=== PATIENT | female | born 1980 | race Caucasian/White ===

== ENCOUNTER 2018-01-16 14:03 | Inpatient (IN) | payer OTHER ==
[~2018-01-16] VITALS: Ht 162.6 cm; Wt 55.8 kg
[~2018-01-16 14:03] MED LIST: BACTRIM DS TAB1 EACH PO; CLONAZEPAM 1 MG PO; ERYTHROMYCIN E3.5 G1 OPHTHALMIC; NORCO 5-325 TA1 EACH PO
[2018-01-16 14:16] VITALS: BP 155/68
[2018-01-16 14:25] LABS: URINE BILIRUBIN NEGATIVE (Negative); URINE BLOOD 3+ (Negative); URINE CLARITY CLEAR; URINE COLOR DARK YELLOW; URINE GLUCOSE-RANDOM NEGATIVE (Negative); URINE KETONES NEGATIVE (Negative); URINE PROTEIN 1+ (Negative); URINE SPECIFIC GRAVITY 1.025 (1.005-1.030); URINE UROBILINOGEN 0.2 E.U./dl (0.2-1.0)
[2018-01-16 14:29] LABS: URINE LEUKOCYTES-REFLEX 3+ (Negative); URINE NITRITE-REFLEX POSITIVE (Negative)
[2018-01-16 14:39] LABS: HEMATOCRIT 37.7 % (37.0-47.0); HEMOGLOBIN 12.5 gm/dL (12.0-15.0); MCHC 33.1 g/dL (28.0-37.0); MCV 90.6 fL (80.0-100.0); MPV 6.7 fl. (7.2-11.1); NUCLEATED RBCS 0 /100WBC; PLATELET COUNT* 275 thou/uL (150-400); RBC 4.16 mil/uL (4.20-5.00); RDW-CV 13.4 % (10.5-14.5); WBC 16.1 thou/uL (4.0-11.0)
[2018-01-16 14:47] LABS: SQUAMOUS 0-3 Few /LPF (0-3); URINE WBC-REFLEX >25 Many /HPF (0-5); WBC CLUMPS Moderate (None Seen)
[2018-01-16 14:48] LABS: BACTERIA-REFLEX >30 Many /HPF (None Seen); CASTS None Seen /LPF (None Seen); CRYSTALS None Seen /LPF (None Seen); MUCUS 4-6 Moderate strn/LPF (None Seen); URINE RBC 3-10 Few /HPF (0-2)
[2018-01-16 14:48] LABS: CALCIUM 7.8 mg/dL (8.5-10.1); CREATININE 0.9 mg/dL (0.6-1.3)
[2018-01-16 14:52] LABS: ALBUMIN 2.5 g/dL (3.4-5.0); TOTAL BILIRUBIN 0.3 mg/dL (<0.1-1.0); TOTAL PROTEIN 6.8 g/dL (6.4-8.2)
[2018-01-16 15:15] LABS: ABSOLUTE MONOCYTES 1.1 thou/uL (0.0-1.2); PLATELET ESTIMATE ADEQUATE
[2018-01-16 18:39] VITALS: BP 96/54
[2018-01-16 19:40] VITALS: BP 95/60
[2018-01-17 04:00] VITALS: BP 106/64
[2018-01-17 04:24] LABS: ABSOLUTE EOSINOPHILS 0.1 thou/uL (0.0-0.7); ABSOLUTE LYMPHOCYTES 1.4 thou/uL (0.8-5.3); ABSOLUTE MONOCYTES 1.7 thou/uL (0.0-1.2); ABSOLUTE NEUTROPHILS 10.5 thou/uL (1.6-8.1); BASOPHILS 0.2 %; EOSINOPHILS 0.5 %; HEMATOCRIT 33.1 % (37.0-47.0); HEMOGLOBIN 10.9 gm/dL (12.0-15.0); MCH 30.2 pg (26.0-34.0); MCHC 33.1 g/dL (28.0-37.0); MCV 91.1 fL (80.0-100.0); MONOCYTES 12.7 %; MPV 7.1 fl. (7.2-11.1); NUCLEATED RBCS 0 /100WBC; PLATELET COUNT* 220 thou/uL (150-400); POLYS 76.6 %; RBC 3.63 mil/uL (4.20-5.00); RDW-CV 13.4 % (10.5-14.5); WBC 13.7 thou/uL (4.0-11.0)
[2018-01-17 04:30] LABS: CREATININE 0.7 mg/dL (0.6-1.3); POTASSIUM 3.2 mmol/L (3.5-5.1)
[2018-01-17 09:15] VITALS: BP 100/62
[2018-01-17 16:06] VITALS: BP 104/66
[2018-01-17 20:00] VITALS: BP 97/64
[2018-01-17 21:28] LABS: AMP/METHAMP POSITIVE (Negative); BARBITURATES Negative (Negative); BENZODIAZEPINES Negative (Negative); COCAINE Negative (Negative); METHADONE Negative (Negative); OPIATES Negative (Negative); PCP Negative (Negative); THC POSITIVE (Negative)
[2018-01-18 04:39] LABS: ABSOLUTE EOSINOPHILS 0.2 thou/uL (0.0-0.7); ABSOLUTE LYMPHOCYTES 1.7 thou/uL (0.8-5.3); ABSOLUTE NEUTROPHILS 7.7 thou/uL (1.6-8.1); BASOPHILS 0.3 %; EOSINOPHILS 1.8 %; HEMATOCRIT 29.3 % (37.0-47.0); HEMOGLOBIN 9.9 gm/dL (12.0-15.0); LYMPHOCYTES 16.2 %; MCH 30.8 pg (26.0-34.0); MCHC 33.9 g/dL (28.0-37.0); MONOCYTES 9.4 %; NUCLEATED RBCS 0 /100WBC; PLATELET COUNT* 225 thou/uL (150-400); POLYS 72.3 %; RBC 3.22 mil/uL (4.20-5.00); RDW-CV 13.4 % (10.5-14.5); WBC 10.7 thou/uL (4.0-11.0)
[2018-01-18 04:44] LABS: ALBUMIN 1.9 g/dL (3.4-5.0); CALCIUM 7.5 mg/dL (8.5-10.1); CREATININE 0.6 mg/dL (0.6-1.3); TOTAL BILIRUBIN 0.2 mg/dL (<0.1-1.0); TOTAL PROTEIN 5.6 g/dL (6.4-8.2)
[2018-01-18 08:50] VITALS: BP 96/49
--- NOTE | 2018-01-18 13:23 | CON ---
[address] [address] CONSULTATION Name: TAVIA BOWER Room: [address] IN .R.#: [id number] Admission: 01/16/18 Attend Phys: Ramin Rausch MD Discharge: Date of : 78 Report #: [id number] THIS REPORT FOR: //name// CC: Ramin Rausch [facility] physician/PCP DATE OF SERVICE: 01/17/2018 REFERRING PHYSICIAN: Dr. Rausch. REASON FOR CONSULTATION: Pyelonephritis. HISTORY OF PRESENT ILLNESS: This is a 37-year-old female, who reports recurrent UTIs. She reports a several-day history of fairly sudden onset of right-sided flank pain, which became unremitting and caused her to come to the Emergency Room. She also reports fever and chills at home, but did not take her temperature. Denies any prior urologic evaluation. She states she has had bladder infections, but not recently. She denies dysuria, hematuria, or difficulty voiding. Denies any sensation of incomplete emptying. PAST MEDICAL HISTORY: As above. She states she is otherwise healthy and takes no routine medications. ALLERGIES: No known drug allergies. FAMILY HISTORY: Significant for kidney stones in her brother. SOCIAL HISTORY: She smokes tobacco, but denies alcohol use. REVIEW OF SYSTEMS: As per history of present illness. She also complains of headache. She denies any history of trauma. Denies chest pain, shortness of breath, cough or palpitations. Denies nausea, vomiting. PHYSICAL EXAMINATION: VITAL SIGNS: Temperature 37.1, pulse 98, respirations 19, blood pressure 100/62. GENERAL: This is a 37-year-old female in no acute distress. She is awake, alert and answers questions appropriately. HEENT: Normocephalic, atraumatic. NECK: Supple. No JVD. Oropharynx is clear. Extraocular movements are intact. CARDIAC: Rhythm is regular. Radial pulses are palpable. LUNGS: Respiratory effort and excursion are normal. ABDOMEN: Soft and nondistended. She is tender in the right upper quadrant and flank. No suprapubic tenderness. Bladder is nonpalpable. No guarding or rebound. EXTREMITIES: Warm. Moves all extremities well. No [place] [id number] CONSULTATION Name: TAVIA BOWER Room: [address] IN [facility].#: [id number] Admission: 01/16/18 Attend Phys: Ramin Rausch MD Discharge: Date of : 78 Report #: [id number] nontender. Right costovertebral angle is tender while the left is nontender. LABORATORY STUDIES: Include sodium 136, potassium 3.2, chloride 101, CO2 of 27, BUN 6, creatinine 0.7, glucose 120. Hemoglobin 10.9, white count 13.7, platelet count 220,000. Urinalysis revealed 3-10 red cells, greater than 25 white cells and many bacteria. Culture on that is pending. Blood cultures are preliminarily negative. Urine test is negative. Contrast CT scan of the abdomen and pelvis was reviewed. This reveals findings consistent with right pyelonephritis. There is no evidence of an abscess. No stones or obstruction apparent. Findings were discussed with the patient. She has been started on ceftriaxone empirically. IMPRESSION: Urinary tract infection/right pyelonephritis. PLAN: Agree with Rocephin empirically. Await urine and blood cultures. If her condition improves, she can be dismissed home on a 2-week course of culture-directed p.o. antibiotics after she has been afebrile for at least 24 hours and hopefully after culture data is available. If her condition deteriorates or does not improve, she may need repeat imaging. We will follow along. <ELECTRONICALLY SIGNED> By: Bakari Marley MD 01/18/18 1323 1520 1907Bakari Marley MD /nt
[2018-01-18 16:36] VITALS: BP 109/53
[2018-01-18 20:00] VITALS: BP 116/72
[2018-01-19 05:04] LABS: ABSOLUTE EOSINOPHILS 0.3 thou/uL (0.0-0.7); ABSOLUTE LYMPHOCYTES 1.7 thou/uL (0.8-5.3); ABSOLUTE MONOCYTES 0.6 thou/uL (0.0-1.2); ABSOLUTE NEUTROPHILS 5.6 thou/uL (1.6-8.1); BASOPHILS 0.5 %; EOSINOPHILS 3.3 %; HEMATOCRIT 29.8 % (37.0-47.0); HEMOGLOBIN 10.2 gm/dL (12.0-15.0); LYMPHOCYTES 20.9 %; MCH 31.1 pg (26.0-34.0); MCHC 34.2 g/dL (28.0-37.0); MCV 90.8 fL (80.0-100.0); MONOCYTES 7.5 %; MPV 7.1 fl. (7.2-11.1); NUCLEATED RBCS 0 /100WBC; PLATELET COUNT* 286 thou/uL (150-400); POLYS 67.8 %; RBC 3.29 mil/uL (4.20-5.00); RDW-CV 13.6 % (10.5-14.5); WBC 8.3 thou/uL (4.0-11.0)
[2018-01-19 05:25] LABS: CALCIUM 8.1 mg/dL (8.5-10.1); CREATININE 0.6 mg/dL (0.6-1.3); MAGNESIUM 1.8 mg/dL (1.8-2.4); POTASSIUM 4.4 mmol/L (3.5-5.1)
[2018-01-19 08:00] VITALS: BP 115/71
[2018-01-19 16:55] VITALS: BP 129/70
[2018-01-19 20:20] VITALS: BP 101/67
[2018-01-20 09:22] VITALS: BP 115/63
[2018-01-20 16:33] VITALS: BP 116/68
[2018-01-20 16:55] VITALS: BP 116/68
[2018-01-20] MEDS ORDERED: CEFUROXIME500 MG PO (16:55)
[2018-01-20 17:30] VITALS: BP 116/68
== END 2018-01-20 17:30 | disposition home or self-care (01) | DRG 872 ==
LOC: M.ERS 14:03 → M.ORTHSURG 16:20 → M.TBA-ER 16:20 → M.ORTHSURG 18:20
PROVIDERS: Family Medicine; Nurse Practitioner Family; ADMIT Internal Medicine
DX: A41.9 Sepsis, unspecified organism (principal); N12 Tubulo-interstitial nephritis, not specified as acute or chronic; E87.1 Hypo-osmolality and hyponatremia; K21.9 Gastro-esophageal reflux disease without esophagitis; F17.210 Nicotine dependence, cigarettes, uncomplicated; E86.0 Dehydration; B96.20 Unspecified Escherichia coli [E. coli] as the cause of diseases classified elsewhere; Z79.899 Other long term (current) drug therapy; Z84.1 Family history of disorders of kidney and ureter